=== PATIENT | male | born 1970 | race African-American/Black ===

== ENCOUNTER 2020-02-23 04:20 | Day surgery (SDC) | payer OTHER ==
[2020-02-22 13:00] VITALS: BMI 27.6
[2020-02-23] MEDS ORDERED: DEXAMETHASONE SOD PHOSPHATE/PF 10 MG/ML SDV ONE (07:16)
[2020-02-23] MEDS ORDERED: BUPIVACAINE HCL/PF 0.25% (2.5MG/ML) 10 ML VIAL ONE (07:17)
[2020-02-23] MEDS ORDERED: BUPIVACAINE HCL/PF 0.75% 10 ML VIAL ONE (07:17)
[2020-02-23] MEDS ORDERED: LIDOCAINE HCL/PF 2% SDV 5ML VIAL ONE (07:21)
[2020-02-23] MEDS ORDERED: LIDOCAINE HCL/PF 1% SDV 5ML VIAL ONE (07:22)
[2020-02-23] MEDS ORDERED: LIDOCAINE HCL 1% PRESERVATIVE FREE - 30ML VIAL IJ ONE (10:22)
[2020-02-23 12:38] VITALS: BP 140/88; PULSE 72; TEMP 97.7
== END 2020-02-23 13:00 | disposition home or self-care (01) ==
LOC: JASU-SURG 04:20
PROVIDERS: ATTEND Pain Medicine Pain Medicine
PROC: 01HY3MZ Insertion of Neurostimulator Lead into Peripheral Nerve, Percutaneous Approach (ICD-10-PCS; principal; 2020-02-23 10:00)
DX: G89.4 Chronic pain syndrome (principal)
CPT/HCPCS: 64555; C1778